=== PATIENT | female | born 1955 | race Caucasian/White ===

== ENCOUNTER 2021-04-22 14:50 | Outpatient (CLI) | payer MEDICARE, OTHER ==
[~2021-04-22] VITALS: Ht 162.6 cm; Wt 65.8 kg
[2021-04-22] MEDS ORDERED: LOSA25TA96 PO (15:21)
[2021-04-22] MEDS ORDERED: VENL150T3 PO (15:21)
[2021-04-22] MEDS ORDERED: LEVO50TA PO (15:21)
[2021-04-22] MEDS ORDERED: LYSI500T11 PO (15:21)
[2021-04-22] MEDS ORDERED: TURM500C4 PO (15:21)
[2021-04-22] MEDS ORDERED: MULT-1249 (15:21)
[2021-04-22] MEDS ORDERED: IBUP-1984 PO (15:21)
[2021-04-22] MEDS ORDERED: CALC-467 (15:21)
[2021-04-22 17:09] LABS: BASOPHILS # (AUTO) 0.1 X10'3 (0-0.2); BASOPHILS % (AUTO) 1.1 % (0-1); EOSINOPHILS # (AUTO) 0.1 X10'3 (0-0.9); EOSINOPHILS % (AUTO) 1.8 % (0-6); LYMPHOCYTES % (AUTO) 27.1 % (21-51); MEAN CORPUSCULAR HEMOGLOBIN 31.4 PG (27.0-31.0); MEAN CORPUSCULAR HGB CONC 34.1 g/dL (33.0-36.5); MEAN CORPUSCULAR VOLUME 92.2 FL (78-98); MEAN PLATELET VOLUME 8.2 FL (7.4-10.4); MONOCYTES # (AUTO) 0.6 X10'3 (0-0.9); MONOCYTES % (AUTO) 8.4 % (2-12); NEUTROPHILS # (AUTO) 4.5 X10'3 (1.8-7.7); NEUTROPHILS % (AUTO) 61.6 % (42-75); PRE OP HEMATOCRIT 40.1 % (35.0-45.0); PRE OP HEMOGLOBIN 13.7 g/dL (12.0-16.0); PRE OP PLATELET COUNT 239 X10'3 (140-440); RED BLOOD COUNT 4.35 X10'6 (4.20-5.60); RED CELL DISTRIBUTION WIDTH 14.1 % (11.5-14.5)
[2021-04-22 17:30] LABS: PRE OP PROTIME 10.2 SECONDS (9.0-12.0)
[2021-04-22 17:41] LABS: ALBUMIN 3.9 G/DL (3.4-5.0); ALBUMIN/GLOBULIN RATIO 1.2 (1.1-1.5); ALKALINE PHOSPHATASE 63 IU/L (46-116); BLOOD UREA NITROGEN 14 MG/DL (7-18); BUN/CREATININE RATIO 14.9 (6.6-38.0); CALCIUM 8.9 MG/DL (8.5-10.1); CHLORIDE 105 MMOL/L (99-107); CREATININE 0.94 MG/DL (0.40-0.90); PRE OP ALT 25 U/L (30-65); PRE OP ANION GAP 7 (8-16); PRE OP AST 20 U/L (10-37); PRE OP BILIRUB, TOTAL 0.2 MG/DL (0.0-1.0); PRE OP GLUCOSE 88 MG/DL (70-104); PRE OP POTASSIUM 3.8 MMOL/L (3.4-5.1); PRE OP SODIUM 143 MMOL/L (135-145); TOTAL PROTEIN 7.2 G/DL (6.4-8.2); eGFR 60 ML/MIN
[2021-04-27] MEDS ORDERED: ringers solution, lacted 1,000 ML IV SCH (05:00)
[2021-04-27] MEDS ORDERED: VANCOMYCIN INJ 1000 MG in NORMAL SALINE 250ml IV.SOLN IV ONE (05:30)
[2021-04-27] MEDS ORDERED: famotidine 20mg tablet PO ONE (05:30)
[2021-04-27] MEDS ORDERED: tranexamic acid 1gm/0.7% sal. 100 ML IV ONE (05:30)
[2021-04-27] MEDS ORDERED: ceFAZolin 2gm in dextrose, iso 50 ML IV ONE (05:30)
== END 2021-04-22 23:59 | disposition home or self-care (01) ==
LOC: PRE-OP 14:50 → EDSTATUS 04-27 11:45
PROVIDERS: ATTEND Orthopaedic Surgery
DX: Z01.818 Encounter for other preprocedural examination (principal); M19.011 Primary osteoarthritis, right shoulder; I10 Essential (primary) hypertension; F41.9 Anxiety disorder, unspecified; F32.9 Major depressive disorder, single episode, unspecified; Z20.822 Contact with and (suspected) exposure to COVID-19; Z79.01 Long term (current) use of anticoagulants; Z79.899 Other long term (current) drug therapy; Z85.3 Personal history of malignant neoplasm of breast; Z98.890 Other specified postprocedural states; Z90.10 Acquired absence of unspecified breast and nipple
CPT/HCPCS: 36415; 80053; 84443; 85025; 85610; 85730; 86885; 86900; 86901; 86920; 87081; 93005; U0003; U0005; J3370; J7120